=== PATIENT | female | born 1990 | race Caucasian/White ===

== ENCOUNTER 2022-05-16 10:11 | Inpatient (IN) | payer BC, MEDICAID ==
[~2022-05-16] VITALS: Ht 167.6 cm; Wt 73.5 kg
[~2022-05-16 10:11] MED LIST: DIPH-423 PO; DIPH25CA83 PO; MECL-159 PO
[2022-05-16 12:23] LABS: ALANINE AMINOTRANSFERASE 21 U/L (12-78); ALBUMIN 3.9 G/DL (3.4-5.0); ALBUMIN/GLOBULIN RATIO 1.1 (1.1-1.5); ALKALINE PHOSPHATASE 64 IU/L (46-116); ANION GAP 8 (8-16); ASPARTATE AMINO TRANSFERASE 12 U/L (10-37); BILIRUBIN,TOTAL 0.3 MG/DL (0.1-1.0); BLOOD UREA NITROGEN 11 MG/DL (7-18); BUN/CREATININE RATIO 12.1 (6.6-38.0); CALCIUM 9.4 MG/DL (8.5-10.1); CHLORIDE 106 MMOL/L (99-107); CREATININE 0.91 MG/DL (0.40-0.90); GLUCOSE 84 MG/DL (70-104); LIPASE 147 U/L (73-393); POTASSIUM 4.8 MMOL/L (3.5-5.1); SODIUM 140 MMOL/L (135-145); TOTAL CARBON DIOXIDE 26.1 MMOL/L (24-32); TOTAL PROTEIN 7.6 G/DL (6.4-8.2); eGFR 71 ML/MIN
[2022-05-16 12:35] LABS: BASOPHILS % (AUTO) 0.4 % (0-1); EOSINOPHILS # (AUTO) 0.4 X10'3 (0-0.9); EOSINOPHILS % (AUTO) 4.8 % (0-6); HEMOGLOBIN 14.4 g/dl (12.0-16.0); LYMPHOCYTES % (AUTO) 33.7 % (21-51); MEAN CORPUSCULAR HEMOGLOBIN 32.3 PG (27.0-31.0); MEAN CORPUSCULAR HGB CONC 33.6 g/dL (33.0-36.5); MEAN CORPUSCULAR VOLUME 96.1 FL (78-98); MEAN PLATELET VOLUME 9.3 FL (7.4-10.4); MONOCYTES # (AUTO) 0.7 X10'3 (0-0.9); MONOCYTES % (AUTO) 7.9 % (2-12); NEUTROPHILS # (AUTO) 4.7 X10'3 (1.8-7.7); NEUTROPHILS % (AUTO) 53.2 % (42-75); PLATELET COUNT 233 X10'3 (140-440); RED BLOOD COUNT 4.47 X10'6 (4.20-5.60); RED CELL DISTRIBUTION WIDTH 13.1 % (11.5-14.5); WHITE BLOOD COUNT 8.9 X10'3 (4.5-11.0)
[2022-05-16 14:22] LABS: URINE HCG NEGATIVE (NEG)
[2022-05-16 14:23] LABS: CLARITY,URINE CLOUDY (Clear); COLOR,URINE YELLOW (Yellow); GLUCOSE, URINE NEGATIVE (Neg); KETONES,URINE NEGATIVE (Neg); LEUKOCYTE ESTERASE ,URINE SMALL (Neg); NITRITES, URINE POSITIVE (Neg); OCCULT BLOOD,URINE TRACE-INTACT (Neg); PROTEIN,URINE NEGATIVE (Neg); UROBILINOGEN,URINE 0.2 E.U/dL (0.2-1.0)
[2022-05-16 14:31] LABS: UA COLLECTION TYPE CLN CATCH MIDSTREAM
[2022-05-16 14:34] LABS: BACTERIA,URINE 4+ /HPF (Neg); MUCUS STRANDS NONE SEEN /LPF (Neg); RBC,URINE 0-2 /HPF (0-2); SQUAMOUS EPITHELIAL CELL,UR MODERATE /LPF (FEW); TRANSITIONAL EPI CELLS,URINE FEW /HPF; WBC CLUMPS,URINE FEW /HPF (NEGATIVE)
[2022-05-16] MEDS ORDERED: CefTRIAXone/D5W-Rocephin 1gm 50 ML IV ONE (15:30)
[2022-05-16] MEDS ORDERED: IBUP-49 PO (16:38)
[2022-05-16] MEDS ORDERED: ETON68IM4 SQ (16:38)
[2022-05-16] MEDS ORDERED: magnesium 2GM in 50ml NS 50 ML IV PRN (17:00)
[2022-05-16] MEDS ORDERED: POTASSIUM BICARB 20meq eff tab 20 MEQ TABLET.EFF PO PRN ×2 (17:00)
[2022-05-16] MEDS ORDERED: potassium CL 10mEq/100ml bag 100 ML IV PRN (17:00)
[2022-05-16] MEDS ORDERED: magnesium Cl slow-release 64mg tablet PO PRN (17:00)
[2022-05-16] MEDS ORDERED: morphine 2 MG/ML inj. syringe IV PRN (17:00)
[2022-05-16] MEDS ORDERED: HYDROmorphone inj. 0.5 MG/0.5 ML DISP.SYRIN IV PRN (17:00)
[2022-05-16] MEDS ORDERED: magnesium 4gm in 100ml NS 100 ML IV PRN (17:00)
[2022-05-16] MEDS: normal saline 1000ml 1,000 ML IV SCH (17:53)
[2022-05-16 18:06] LABS: POTASSIUM 3.9 MMOL/L (3.5-5.1)
[2022-05-16] MEDS: K and/or MAG REPLACEMENT MC SCH (20:00)
[2022-05-17] VITALS (16 sets, daily range): BP systolic 94–123; BP diastolic 45–76
[2022-05-17] MEDS: normal saline 1000ml 1,000 ML IV SCH ×3 (03:39→17:49)
[2022-05-17 07:33] LABS: BASOPHILS % (AUTO) 0.4 % (0-1); EOSINOPHILS # (AUTO) 0.3 X10'3 (0-0.9); EOSINOPHILS % (AUTO) 4.4 % (0-6); HEMATOCRIT 39.1 % (35.0-45.0); HEMOGLOBIN 13.9 g/dl (12.0-16.0); LYMPHOCYTES # (AUTO) 3.2 X10'3 (1.1-4.8); MEAN CORPUSCULAR HEMOGLOBIN 32.8 PG (27.0-31.0); MEAN CORPUSCULAR HGB CONC 35.5 g/dL (33.0-36.5); MEAN CORPUSCULAR VOLUME 92.5 FL (78-98); MONOCYTES # (AUTO) 0.6 X10'3 (0-0.9); MONOCYTES % (AUTO) 8.1 % (2-12); NEUTROPHILS # (AUTO) 3.2 X10'3 (1.8-7.7); NEUTROPHILS % (AUTO) 43.1 % (42-75); PLATELET COUNT 222 X10'3 (140-440); RED BLOOD COUNT 4.23 X10'6 (4.20-5.60); WHITE BLOOD COUNT 7.4 X10'3 (4.5-11.0)
[2022-05-17 07:57] LABS: ALBUMIN 3.4 G/DL (3.4-5.0); ANION GAP 10 (8-16); BLOOD UREA NITROGEN 12 MG/DL (7-18); BUN/CREATININE RATIO 14.3 (6.6-38.0); CALCIUM 8.4 MG/DL (8.5-10.1); CHLORIDE 106 MMOL/L (99-107); CREATININE 0.84 MG/DL (0.40-0.90); GLUCOSE 82 MG/DL (70-104); MAGNESIUM 1.9 MG/DL (1.5-2.4); POTASSIUM 3.9 MMOL/L (3.5-5.1); SODIUM 140 MMOL/L (135-145); eGFR 78 ML/MIN
[2022-05-17] MEDS: K and/or MAG REPLACEMENT MC SCH ×2 (08:00→20:00)
--- NOTE | 2022-05-17 08:30 | NUR ---
pt reports pain 4/10, does not want pain meds at this time. informed that meds are ordered if she needs them.
--- NOTE | 2022-05-17 08:43 | NUR ---
telephone report to clemencia dyer.
--- NOTE | 2022-05-17 09:47 | NUR ---
Student Medication Administration: For this medication-pass time frame, all medication were reviewed, dispensed, administered and documented per hospital policy by student Layo Tompkins with instructor Margareth Cheung Rn.
[2022-05-17] MEDS ORDERED: labetalol 20mg/4ml (5mg/ml) syringe IV PRN (11:30)
[2022-05-17] MEDS ORDERED: morphine 2 MG/ML inj. syringe IV PRN (11:30)
[2022-05-17] MEDS ORDERED: hydrALAZINE 20mg/ml inj. IV PRN (11:30)
[2022-05-17] MEDS ORDERED: fentaNYL/PF 50MCG/1 ML 2ML syringe IV PRN (11:30)
[2022-05-17] MEDS ORDERED: ondansetron/PF 4mg/2ml inj IV PRN ×3 (11:30→15:30)
[2022-05-17] MEDS ORDERED: morphine 4 MG/ML inj SYRINge IV PRN (11:30)
[2022-05-17] MEDS ORDERED: ringers solution, lacted 1,000 ML IV SCH ×2 (11:30→15:30)
[2022-05-17] MEDS ORDERED: BUPIVAcaine/PF 2.5 mg/ml (0.25%) 30ml vial ONE (13:49)
[2022-05-17] MEDS ORDERED: fentaNYL/PF 50MCG/1 ML 2ML syringe ONE (14:23)
[2022-05-17] MEDS ORDERED: midazolam 1 mg/ML 2ml injection ONE (14:24)
[2022-05-17] MEDS ORDERED: clindamycin-Cleocin 900mg/D5W 50 ML IV ONE (14:28)
[2022-05-17] MEDS ORDERED: naloxone 0.4 mg/ml inj IV PRN (15:25)
[2022-05-17] MEDS ORDERED: HYDROcodone/acetaminophen 5mg/325mg tablet PO PRN (15:25)
--- NOTE | 2022-05-17 15:25 | NUR ---
Received from OR via SURGICAL BED , accompanied by Anesthesiologist DR HURTADO and report given by Anesthesiolgist. PT AWAKE, PLACED ON O2 AND MONITOR, S/P LAP BRANDON., ABD SOFT PT HAS 3 LARGE BANDAIDS TO ABD, CDI, PT C/O NAUSEA, AND ABD PAIN, MOANING AND UNABLE TO GET COMFORTABLE. 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 20G PIV IN LEFT AC, ZOFRAN, TORADOL, AND FENTANYL GIVEN. WILL CONT TO ASSESS.
[2022-05-17] MEDS ORDERED: proMETHazine 25mg rectal suppository RC PRN ×3 (15:30)
[2022-05-17] MEDS ORDERED: proCHLORperazine 10 MG/2 ml inj IM ONE (15:30)
[2022-05-17] MEDS ORDERED: proCHLORperazine 10 MG/2 ml inj IV PRN ×2 (15:30)
[2022-05-17] MEDS ORDERED: midazolam 1 mg/ML 2ml injection IV ONE (15:30)
[2022-05-17] MEDS: fentaNYL/PF 50MCG/1 ML 2ML syringe IV PRN ×2 (15:35→17:45)
[2022-05-17] MEDS ORDERED: acetaminophen 1,000mg/100ml IV 100 ML IV ONE (15:35)
[2022-05-17] MEDS: ketorolac trometh. 30mg/ml inj. IV PRN ×3 (15:36→22:01)
--- NOTE | 2022-05-17 16:30 | NUR ---
Pt returned from RR s/p lap александр w/ 4 lap sites/bandaids on abd. Pt O2 sat 99 on RA, tolerating ice chips. A&O x4. Denies needs.
--- NOTE | 2022-05-17 18:30 | NUR ---
Patient report given, questions answered & plan of care reviewed with ROSANNE Rodrigues.
--- NOTE | 2022-05-17 18:59 | NUR ---
Patient in room [facility]TH[facility] 4011. I have received report from LAMIN LAY and had the opportunity to ask questions and assume patient care.
[2022-05-17] MEDS: ciprofloxacin 250mg tablet PO SCH (21:57)
[2022-05-17] MEDS ORDERED: ciprofloxacin 250mg tablet PO SCH (22:00)
[2022-05-18 02:00] VITALS: BP 104/63
[2022-05-18] MEDS: normal saline 1000ml 1,000 ML IV SCH (04:26)
[2022-05-18 06:00] VITALS: BP 101/72
--- NOTE | 2022-05-18 06:30 | NUR ---
Problems reprioritized. Patient report given, questions answered & plan of care reviewed with CARLO LAY.
[2022-05-18 06:31] LABS: BASOPHILS % (AUTO) 0.1 % (0-1); EOSINOPHILS % (AUTO) 0 % (0-6); HEMATOCRIT 37.2 % (35.0-45.0); HEMOGLOBIN 12.8 g/dl (12.0-16.0); LYMPHOCYTES # (AUTO) 1.7 X10'3 (1.1-4.8); LYMPHOCYTES % (AUTO) 12.7 % (21-51); MEAN CORPUSCULAR HGB CONC 34.3 g/dL (33.0-36.5); MEAN CORPUSCULAR VOLUME 93.1 FL (78-98); MEAN PLATELET VOLUME 8.2 FL (7.4-10.4); MONOCYTES # (AUTO) 0.6 X10'3 (0-0.9); MONOCYTES % (AUTO) 4.3 % (2-12); NEUTROPHILS # (AUTO) 10.8 X10'3 (1.8-7.7); NEUTROPHILS % (AUTO) 82.9 % (42-75); PLATELET COUNT 205 X10'3 (140-440); RED BLOOD COUNT 3.99 X10'6 (4.20-5.60); WHITE BLOOD COUNT 13.1 X10'3 (4.5-11.0)
[2022-05-18 06:34] LABS: ALBUMIN 3.2 G/DL (3.4-5.0); ANION GAP 10 (8-16); BLOOD UREA NITROGEN 10 MG/DL (7-18); BUN/CREATININE RATIO 11.2 (6.6-38.0); CALCIUM 8.3 MG/DL (8.5-10.1); CHLORIDE 107 MMOL/L (99-107); CREATININE 0.89 MG/DL (0.40-0.90); GLUCOSE 115 MG/DL (70-104); MAGNESIUM 1.8 MG/DL (1.5-2.4); SODIUM 140 MMOL/L (135-145); TOTAL CARBON DIOXIDE 22.7 MMOL/L (24-32); eGFR 73 ML/MIN
[2022-05-18] MEDS: K and/or MAG REPLACEMENT MC SCH (08:00)
[2022-05-18 10:00] VITALS: BP 92/52
[2022-05-18] MEDS: ciprofloxacin 250mg tablet PO SCH (10:15)
--- NOTE | 2022-05-18 11:55 | NUR ---
PAGER ID: [phone] MESSAGE: Alexa Frank [phone] Re: [email or web address] just want to verify if you will be discharging on Cipro urine culture up with sensitivitiy
--- NOTE | 2022-05-18 11:58 | NUR ---
Dr Ellis ok for discharge
--- NOTE | 2022-05-18 12:44 | NUR ---
Called in Cipro 500mg PO BID x1 week ,. called in to [facility] to brigette the phamacist
--- NOTE | 2022-05-18 13:41 | NUR ---
PAGER ID: [phone] MESSAGE: Alexa Frank [phone] Re: [id number] wanting a work release please call
--- NOTE | 2022-05-18 14:08 | NUR ---
Patient discharge instructions reviewed with patient. Patient verbalized understanding. Patient had no IV in place. Patient was given a work release from Dr Ellis for 1 month. Patient states she has all her belongings. Patient was taken via wheelchair with father at bedside to fathers vehicle by MANUEL Chandler
[2022-05-18] MEDS ORDERED: CIPR-202 PO (20:11)
== END 2022-05-18 14:00 | disposition home or self-care (01) | DRG 418 ==
LOC: ER 10:11 → ED HOLD 17:05 → ORTHO 4S 05-17 08:50
PROVIDERS: ADMIT Internal Medicine; ATTEND Internal Medicine
PROC: 0FT44ZZ Resection of Gallbladder, Percutaneous Endoscopic Approach (ICD-10-PCS; principal; 2022-05-17 14:20)
DX: K80.00 Calculus of gallbladder with acute cholecystitis without obstruction (principal); N39.0 Urinary tract infection, site not specified; B96.20 Unspecified Escherichia coli [E. coli] as the cause of diseases classified elsewhere; Z20.822 Contact with and (suspected) exposure to COVID-19; F17.210 Nicotine dependence, cigarettes, uncomplicated; K82.8 Other specified diseases of gallbladder; Z88.0 Allergy status to penicillin; Z88.2 Allergy status to sulfonamides; Z79.899 Other long term (current) drug therapy; Z71.6 Tobacco abuse counseling
CPT/HCPCS: 99285; Z7506; Z7508; 36415; 76700; 80048; 80053; 81001; 81025; 82948; 83690; 83735; 84132; 85025; 87077; 87081; 87088; 87186; 87635; A4215; A4618; A7000; G0378; J0131; J0696; J1885; J2250; J2405; J3010; J3490; J7030; J7120